=== PATIENT | female | born 2000 | race Caucasian/White ===

== ENCOUNTER 2020-11-17 21:05 | Emergency (ER) | payer OTHER ==
[~2020-11-17] VITALS: Ht 160 cm; Wt 72.0 kg
[2020-11-17 21:05] VITALS: BP 118/59
[2020-11-17 21:40] LABS: BASO # 0.2 x10^3/uL (0.0-0.2); BASO % 1 % (0-3); EOS # 0.2 x10^3/uL (0.0-0.7); EOS % 1 % (0-3); HEMATOCRIT 31.4 % (36.0-47.0); LYMPH # 2.9 x10^3/uL (1.0-4.8); LYMPH % 22 % (24-48); MEAN CORPUSCULAR HEMOGLOBIN 27 pg (25-35); MEAN CORPUSCULAR HGB CONC 32 g/dL (31-37); MEAN CORPUSCULAR VOLUME 85 fL (79-100); MONO # 0.7 x10^3/uL (0.0-1.1); MONO % 6 % (0-9); NEUT # 9.1 x10^3uL (1.8-7.7); NEUT % 70 % (31-73); PLATELET COUNT 403 x10^3/uL (140-400); RED BLOOD COUNT 3.71 x10^6/uL (3.50-5.40); RED CELL DISTRIBUTION WIDTH 15.2 % (11.5-14.5); WHITE BLOOD COUNT 13.2 x10^3/uL (4.0-11.0)
[2020-11-17 21:47] LABS: CALCIUM 9.3 mg/dL (8.5-10.1); CREATININE 0.7 mg/dL (0.6-1.0); GFR 105.6; POTASSIUM 3.8 mmol/L (3.5-5.1)
[2020-11-17 22:00] LABS: BILIRUBIN,URINE NEG (NEG); CLARITY,URINE HAZY; COLOR,URINE AMBER; GLUCOSE,URINE NEG (NEG)
[2020-11-17] MEDS ORDERED: ONDANSETRON ODT 4 MG TAB.RAPDIS PO ONE (22:00)
[2020-11-17] MEDS ORDERED: ACETAMINOPHEN 500 MG TABLET PO ONE (22:00)
[2020-11-17] MEDS ORDERED: IV RINGERS SOLUTION,LACTATED 1,000 ML IV ONE (22:00)
[2020-11-17 22:01] LABS: BACTERIA,URINE 0 /HPF (0-FEW); NITRITE,URINE NEG (NEG); RBC,URINE TNTC /HPF (0-2); SQUAMOUS EPITHELIAL CELL,UR MOD /LPF; UROBILINOGEN,URINE 0.2 mg/dL (0.2 mg/dL)
--- NOTE | 2020-11-17 22:45 | PHYS DOC ---
Adult General Chief Complaint Chief Complaint: ABDOMINAL PAIN IN HPI HPI Patient is a 20-year-old female, G2, P1 at 32 weeks who presents with a chief complaint of right-sided flank pain. States she had a stent placed recently in the right urethra for some issues she was having with flank pain and reflux. States she was supposed to have it removed 3 days ago but was not able to. States she has right-sided flank pain, 8 out of 10 despite taking multiple Percocets at home today and nausea but no vomiting. States she also has blood in her urine. Denies any vaginal bleeding, discharge, gushes of fluid or blood, contractions or abdominal pain. States that she is still feeling the baby move. Denies any recent traumas, illnesses, fevers, chest pain, shortness of breath, dysuria or blood in the stool. Review of Systems Review of Systems Review of systems otherwise unremarkable except noted in HPI Current Medications Current Medications Current Medications Medications (Trade) Dose Ordered Sig/Sonam Start Time Stop Time Status Last Admin Dose Admin Acetaminophen (Tylenol) 1,000 mg 1X ONCE 11/17/20 22:00 11/17/20 22:01 DC 11/17/20 22:26 1,000 MG Fentanyl Citrate (Fentanyl 2ml Vial) 50 mcg 1X ONCE 11/17/20 22:00 11/17/20 22:09 DC 11/17/20 22:23 50 MCG Lactated Ringer's 1,000 ml @ 1,000 mls/hr 1X ONCE 11/17/20 22:00 11/17/20 22:59 11/17/20 22:27 1,000 MLS/HR Ondansetron HCl (Zofran Odt) 4 mg 1X ONCE 11/17/20 22:00 11/17/20 22:01 DC 11/17/20 22:24 4 MG Allergies Allergies Allergies Coded Allergies Type Severity Reaction Last Updated Verified No Known Drug Allergies 11/17/20 No Physical Exam Physical Exam Constitutional: Well developed, well nourished, no acute distress, non-toxic appearance. [] Neck: Normal range of motion, no tenderness, supple, no stridor. [] Cardiovascular:Heart rate regular rhythm, no murmur [] Lungs & Thorax: Bilateral breath sounds clear to auscultation [] Abdomen: Bowel sounds normal, soft, no tenderness, no masses, no pulsatile masses. Gravid with uterus fundus well above the umbilicus. Baby movement detected by palpation. heart rate 166. [] Skin: Warm, dry, no erythema, no rash. [] Back: No tenderness, right-sided CVA tenderness. [] Extremities: No tenderness, no cyanosis, no clubbing, ROM intact, no edema. [] Neurologic: Alert and oriented X 3, normal motor function, normal sensory function, no focal deficits noted. [] Psychologic: Affect normal, judgement normal, mood normal. [] Current Patient Data Lab Results Laboratory Tests Test 11/17/20 21:05 11/17/20 21:16 White Blood Count 13.2 x10^3/uL (4.0-11.0) H Red Blood Count 3.71 x10^6/uL (3.50-5.40) Hemoglobin 10.0 g/dL (12.0-15.5) L Hematocrit 31.4 % (36.0-47.0) L Mean Corpuscular Volume 85 fL (79-100) Mean Corpuscular Hemoglobin 27 pg (25-35) Mean Corpuscular Hemoglobin Concent 32 g/dL (31-37) Red Cell Distribution Width 15.2 % (11.5-14.5) H Platelet Count 403 x10^3/uL (140-400) H Neutrophils (%) (Auto) 70 % (31-73) Lymphocytes (%) (Auto) 22 % (24-48) L Monocytes (%) (Auto) 6 % (0-9) Eosinophils (%) (Auto) 1 % (0-3) Basophils (%) (Auto) 1 % (0-3) Neutrophils # (Auto) 9.1 x10^3uL (1.8-7.7) H Lymphocytes # (Auto) 2.9 x10^3/uL (1.0-4.8) Monocytes # (Auto) 0.7 x10^3/uL (0.0-1.1) Eosinophils # (Auto) 0.2 x10^3/uL (0.0-0.7) Basophils # (Auto) 0.2 x10^3/uL (0.0-0.2) Sodium Level 137 mmol/L (136-145) Potassium Level 3.8 mmol/L (3.5-5.1) Chloride Level 102 mmol/L (98-107) Carbon Dioxide Level 23 mmol/L (21-32) Anion Gap 12 (6-14) Blood Urea Nitrogen 12 mg/dL (7-20) Creatinine 0.7 mg/dL (0.6-1.0) Estimated GFR (Cockcroft-Gault) 105.6 Glucose Level 109 mg/dL (70-99) H Calcium Level 9.3 mg/dL (8.5-10.1) Urine Collection Type Unknown Urine Color Addis Urine Clarity Hazy Urine pH 7.0 Urine Specific [place] 1.025 Urine Protein 100 mg/dl (NEG-TRACE) Urine Glucose (UA) Neg mg/dL (NEG) Urine Ketones (Stick) Neg mg/dL (NEG) Urine Blood Large (NEG) Urine Nitrite Neg (NEG) Urine Bilirubin Neg (NEG) Urine Urobilinogen Dipstick 0.2 mg/dL (0.2 mg/dL) Urine Leukocyte Esterase Trace (NEG) Urine RBC Tntc /HPF (0-2) Urine WBC 1-4 /HPF (0-4) Urine Squamous Epithelial Cells Mod /LPF Urine Bacteria 0 /HPF (0-FEW) EKG EKG [] Radiology/Procedures Radiology/Procedures [] Heart Score Risk Factors: Risk Factors: DM, Current or recent (<one month) smoker, HTN, HLP, family history of CAD, obesity. Risk Scores: Risk Factors: DM, Current or recent (<one month) smoker, HTN, HLP, family history of CAD, obesity. Course & Med Decision Making Course & Med Decision Making Patient is a 20-year-old female, G2, P1 at 32 weeks status post right renal stent who presents for flank pain. Patient states that when she called the ambulance [facility] because [facility] where [facility] surgeon was and they have OB capability. States she was told by EMS that they could not take her there because of the weather. Vital signs notable for mild tachycardia. Physical exam noted above. Patient placed on the monitor with IV access established and IV fluid resuscitation begun. Given Zofran for nausea and fentanyl for pain. Patient states that she had already taken 3 Percocet today for the pain with only minimal relief. Laboratory analysis notable for hematuria and leukocytosis. Discussed findings with patient and recommended transfer and admission for continued evaluation and treatment by [employer] and her urologist. Discussed patient with [facility] transfer team, OB/ticket chopper assembler and her urology team who felt patient was appropriate for admission and accepted to their service. [] Dragon Disclaimer Dragon Disclaimer This electronic medical record was generated, in whole or in part, using a voice recognition dictation system. Departure Departure: Impression: Primary Impression: Flank pain Additional Impressions: Hematuria Leukocytosis 32 weeks gestation of Disposition: 02 DC/TRF OTHER SHORT TERM HOS Condition: IMPROVED Referrals: MERLYN VIVEROS MD (PCP) Problem Qualifiers ROSMERY WEINBERG MD Nov 17, 2020 22:45
== END 2020-11-17 23:59 | disposition short-term general hospital (02) ==
LOC: ER 21:05
DX: O99.113 Other diseases of the blood and blood-forming organs and certain disorders involving the immune mechanism complicating pregnancy, third trimester (principal); D72.829 Elevated white blood cell count, unspecified; R10.9 Unspecified abdominal pain; R31.9 Hematuria, unspecified; Z3A.32 32 weeks gestation of pregnancy
CPT/HCPCS: 36415; 80048; 81001; 85025; 87086; 96361; 96374; 99285; J3010; J7120; Q0162

== ENCOUNTER 2021-05-14 22:14 | Emergency (ER) | payer OTHER ==
[~2021-05-14] VITALS: Ht 160 cm; Wt 59.0 kg
--- NOTE | 2021-05-14 22:17 | PHYS DOC ---
Past History Past Medical History: Other Additional Past Medical Histor: kidney reflux Past Surgical History: Other Additional Past Surgical Histo: ureteral stent Alcohol Use: None General Adult HPI: HPI: ". I have grade II ueter reflux. .. I ve had multiple episodes of pyelonephritis... And urinary tract infections I usually follow at [facility] but now I am going to start going to [facility]... I normally see Dr. Ackerman here..." In [place]" Patient is a 20 year old female who presents with above hx and complaints right flank pain, fever, malaise, nausea,. Patient normally follows at [facility]. Now is planning to follow-up at [facility]. Because of insurance issues. Patient states pain is similar to prior episodes of pyelonephritis. Patient has had pregnancies 2 term 2. Patient is unsure with her status currently. No history of bad food intake. No recent travel. No specific ill contacts. No history of trauma. No history immunosuppression. Review of Systems: Review of Systems: Constitutional: Denies fever or chills Eyes: Denies change in visual acuity HENT: Denies nasal congestion or sore throat Respiratory: Denies cough or shortness of breath Cardiovascular: Denies chest pain or edema GI: Denies abdominal pain, nausea, vomiting, bloody stools or diarrhea. Right flank discomfort : Denies dysuria Musculoskeletal: Right flank back pain . Integument: Denies rash Neurologic: Denies headache, focal weakness or sensory changes Endocrine: Denies polyuria or polydipsia Lymphatic: Denies swollen glands Psychiatric: Denies depression or anxiety Family History: Family History: See nursing for home meds. Current Medications: Current Meds: See nursing for home meds Allergies: Allergies: Allergies Coded Allergies Type Severity Reaction Last Updated Verified No Known Drug Allergies 11/17/20 No Physical Exam: PE: Constitutional: Well developed, well nourished, moderate acute distress, non- toxic appearance. [] HENT: Normocephalic, atraumatic, bilateral external ears normal, oropharynx moist, no oral exudates, nose normal. [] Eyes: PERRLA, EOMI, conjunctiva normal, no discharge. [] Neck: Normal range of motion, no tenderness, supple, no stridor. [] Cardiovascular:Heart rate regular rhythm, no murmur [] Lungs & Thorax: Bilateral breath sounds apex on auscultation [] Abdomen: Bowel sounds decreased,, soft, no tenderness, no masses, no pulsatile masses. Right flank discomfort Skin: Warm, dry, no erythema, no rash. [] Back: No tenderness, right CVA tenderness. [] Extremities: No tenderness, no cyanosis, no clubbing, ROM intact, no edema. [] Neurologic: Alert and oriented X 3, normal motor function, normal sensory function, no focal deficits noted. [] Psychologic: Affect normal, judgement normal, mood normal. [] EKG: EKG: [] Radiology/Procedures: Radiology/Procedures: [address] [address] IMAGING REPORT Signed PATIENT: FABIO WANG ACCOUNT: [id number] : 2000 LOCATION: ER AGE: 20 SEX: F EXAM STATUS: REG ER ORD. PHYSICIAN: JOCELYN BARROS MD REASON: RIGHT KIDNEY PAIN. HX KIDNEY DISORDER PROCEDURE: ACUTE ABDOMEN SERIES Study: XR ABDOMEN COMP ACUTE Indication: Right flank pain. Comparison: None. Findings: Cholecystectomy clips. Belly button ring. Nonobstructive bowel gas pattern. Small amount of well-formed stool within the colon. No radiographic evidence for a kidney stone. A few pelvic phleboliths. Impression: No acute radiographic abnormality seen throughout the abdomen or pelvis. Electronically signed by: HENRY PITTS MD (05/15/2021 12:31 AM) [facility] DICTATED AND SIGNED BY: HENRY PITTS MD DATE: 05/15/2128 CC: JOCELYN BARROS MD; CHIVOKAYA ~MTH0 0 [][address] [address] IMAGING REPORT Signed PATIENT: FABIO WANG ACCOUNT: [id number] : 2000 LOCATION: ER AGE: 20 SEX: F EXAM STATUS: REG ER ORD. PHYSICIAN: JOCELYN BARROS MD REASON: RT FLANK PAIN.HX KIDNEY DISORDER PROCEDURE: CT ABDOMEN PELVIS WO CONTRAST Study: CT abdomen/pelvis without intravenous contrast Indication: Right flank pain. Comparison: None. Technique: Helical CT imaging performed of the abdomen and pelvis without the use of intravenous contrast. Sagittal and coronal reformats were obtained. One or more of the following individualized dose reduction techniques were utilized for this examination: 1. Automated exposure control 2. Adjustment of the mA and/or kV according to patient size 3. Use of iterative reconstruction technique. Findings: Inherently limited evaluation without intravenous contrast. Unremarkable visualized chest. No focal hepatic parenchymal abnormality. Surgically absent gallbladder. Unremarkable biliary tree, pancreas and adrenal glands. The spleen is within the broad range of normal for size measuring under 13 cm in maximum dimension. The right kidney exhibits lobulated margins and less well delineated renal sinus fat compared to the left. No intrarenal stone on either side or hydronephrosis. Minimal thickening of the urinary bladder wall. Normal morphology of the uterus. Small right ovarian cyst or dominant follicle measuring up to approximately 1.3 cm. Mild volume colonic stool burden. Normal appendix, image 102 series 2. Nonobstructed small bowel. Unremarkable stomach. Normal aortic caliber. No lymphadenopathy. No free fluid. No acute or aggressive osseous process. Impression: 1. No nephrolithiasis is identified or hydronephrosis. Nonspecific increased lobulated margins of the right kidney and less well delineated renal sinus fat relative to the left. This could be developmental or potentially acquired from recurrent infection. No overt perinephric edema to suggest pyelonephritis. Minimal prominence of the urinary bladder wall. Consider correlation with urinalysis to exclude cystitis. 2. No acute abnormality of the rest of the abdominal or pelvic contents. Surgically absent gallbladder. Electronically signed by: HENRY PITTS MD (05/15/2021 12:44 AM) [facility] DICTATED AND SIGNED BY: HENRY PITTS MD DATE: 05/15/21 0038 CC: JOCELYN BARROS MD; KAYA ACKERMAN ~MTH0 0 Heart Score: C/O Chest Pain: N/A Risk Factors: Risk Factors: DM, Current or recent (<one month) smoker, HTN, HLP, family history of CAD, obesity. Risk Scores: Score 0 - 3: 2.5% MACE over next 6 weeks - Discharge Home Score 4 - 6: 20.3% MACE over next 6 weeks - Admit for Clinical Observation Score 7 - 10: 72.7% MACE over next 6 weeks - Early Invasive Strategies Course & Med Decision Making: Course & Med Decision Making Pertinent Labs and Imaging studies reviewed. (See chart for details) Patient stay on clear fluid diet. Push fluids. Follow-up primary care. Take Keflex 500 mg 3 times a day. Follow-up urine cultures. Follow-up with urology. Return if any concerns. Follow-up primary. Tylenol and ibuprofen for pain. Impression: 1. Renal Colic 2. History of ureter- reflux [] Dragon Disclaimer: Dragon Disclaimer: This electronic medical record was generated, in whole or in part, using a voice recognition dictation system. Departure Departure: Referrals: KAYA ACKERMAN (PCP) Scripts Cephalexin (KEFLEX) 750 Mg Capsule 500 MG PO TID for hx pyleo for 10 Days, #30 CAP Prov: JOCELYN BARROS MD 05/15/21 Dragon Disclaimer This chart was dictated in whole or in part using Voice Recognition software in a busy, high-work load, and often noisy Emergency Department environment. It may contain unintended and wholly unrecognized errors or omissions. JOCELYN BARROS MD May 14, 2021 22:17
[2021-05-14] MEDS ORDERED: IV RINGERS SOLUTION,LACTATED 1,000 ML IV SCH (22:45)
[2021-05-14] MEDS ORDERED: ONDANSETRON PF 4 MG/2 ML VIAL. IVP ONE (22:45)
[2021-05-14] MEDS ORDERED: FAMOTIDINE 20 MG/2 ML VIAL IVP ONE (22:45)
[2021-05-14] MEDS ORDERED: IV NORMAL SALINE 50ML 50 ML ONE (23:11)
[2021-05-14] MEDS ORDERED: cefTRIAXone SODIUM 1 GM VIAL ONE (23:12)
[2021-05-14 23:19] LABS: BASO # 0.1 x10^3/uL (0.0-0.2); BASO % 1 % (0-3); EOS # 0.2 x10^3/uL (0.0-0.7); EOS % 2 % (0-3); HEMATOCRIT 37.9 % (36.0-47.0); HEMOGLOBIN 12.6 g/dL (12.0-15.5); LYMPH # 3.6 x10^3/uL (1.0-4.8); LYMPH % 38 % (24-48); MEAN CORPUSCULAR HEMOGLOBIN 28 pg (25-35); MEAN CORPUSCULAR HGB CONC 33 g/dL (31-37); MEAN CORPUSCULAR VOLUME 83 fL (79-100); MONO # 0.5 x10^3/uL (0.0-1.1); MONO % 5 % (0-9); NEUT # 5.1 x10^3uL (1.8-7.7); NEUT % 54 % (31-73); PLATELET COUNT 275 x10^3/uL (140-400); RED BLOOD COUNT 4.57 x10^6/uL (3.50-5.40); RED CELL DISTRIBUTION WIDTH 15.9 % (11.5-14.5); WHITE BLOOD COUNT 9.5 x10^3/uL (4.0-11.0)
[2021-05-14 23:21] LABS: BARBITURATES NEG (NEG); BENZODIAZEPINES NEG (NEG); CANNABINOIDS NEG (NEG); COCAINE NEG (NEG); METHADONE NEG (NEG); OPIATES NEG (NEG); PHENCYCLIDINE NEG (NEG)
[2021-05-14 23:24] LABS: CALCIUM 9.1 mg/dL (8.5-10.1); POTASSIUM 3.9 mmol/L (3.5-5.1)
[2021-05-14 23:26] LABS: AMPHETAMINE/METHAMPHETAMINE NEG (NEG)
[2021-05-14 23:29] LABS: BILIRUBIN,URINE NEG (NEG); CLARITY,URINE HAZY; COLOR,URINE YELLOW; GLUCOSE,URINE NEG (NEG); NITRITE,URINE NEG (NEG); UROBILINOGEN,URINE 0.2 mg/dL (0.2 mg/dL)
[2021-05-14 23:30] LABS: ALBUMIN 4.1 g/dL (3.4-5.0); DIRECT BILIRUBIN 0.1 mg/dL (0.0-0.2); TOTAL BILIRUBIN 0.4 mg/dL (0.2-1.0); TOTAL PROTEIN 7.6 g/dL (6.4-8.2)
[2021-05-14 23:30] LABS: BACTERIA,URINE 0 /HPF (0-FEW); RBC,URINE 0 /HPF (0-2)
[2021-05-14] MEDS ORDERED: KETOROLAC 30 MG/ML VIAL. IVP ONE (23:30)
[2021-05-15] MEDS ORDERED: MORPHINE SULFATE 10 MG/ML SYRINGE. SQ ONE (00:30)
--- NOTE | 2021-05-15 00:33 | RAD ---
Study: XR ABDOMEN COMP ACUTE Indication: Right flank pain. Comparison: None. Findings: Cholecystectomy clips. Belly button ring. Nonobstructive bowel gas pattern. Small amount of well-formed stool within the colon. No radiographic evidence for a kidney stone. A few pelvic phleboliths. Impression: No acute radiographic abnormality seen throughout the abdomen or pelvis. Electronically signed by: HENRY PITTS MD (05/15/2021 12:31 AM) [facility]
--- NOTE | 2021-05-15 00:47 | RAD ---
Study: CT abdomen/pelvis without intravenous contrast Indication: Right flank pain. Comparison: None. Technique: Helical CT imaging performed of the abdomen and pelvis without the use of intravenous cont rast. Sagittal and coronal reformats were obtained. One or more of the following individualized dose reduction techniques were utilized for this examinat ion: 1. Automated exposure control 2. Adjustment of the mA and/or kV according to patient size 3. Use of iterative reconstruction technique. Findings: Inherently limited evaluation without intravenous contrast. Unremarkable visualized chest. No focal hepatic parenchymal abnormality. Surgically absent gallbladder. Unremarkable biliary tree, p ancreas and adrenal glands. The spleen is within the broad range of normal for size measuring under 1 3 cm in maximum dimension. The right kidney exhibits lobulated margins and less well delineated renal sinus fat compared to the left. No intrarenal stone on either side or hydronephrosis. Minimal thickening of the urinary bladder wall. Normal morphology of the uterus. Small right ovarian cyst or dominant follicle measuring up to approximately 1.3 cm. Mild volume colonic stool burden. Normal appendix, image 102 series 2. Nonobstructed small bowel. Unr emarkable stomach. Normal aortic caliber. No lymphadenopathy. No free fluid. No acute or aggressive osseous process. Impression: 1. No nephrolithiasis is identified or hydronephrosis. Nonspecific increased lobulated margins of th e right kidney and less well delineated renal sinus fat relative to the left. This could be developm ental or potentially acquired from recurrent infection. No overt perinephric edema to suggest pyelone phritis. Minimal prominence of the urinary bladder wall. Consider correlation with urinalysis to excl ude cystitis. 2. No acute abnormality of the rest of the abdominal or pelvic contents. Surgically absent gallbladd er. Electronically signed by: HENRY PITTS MD (05/15/2021 12:44 AM) [facility]
[2021-05-15] MEDS ORDERED: CEPH750C9 PO (01:09)
[2021-05-15 01:15] VITALS: BP 125/79
== END 2021-05-15 01:15 | disposition home or self-care (01) ==
LOC: ER 22:14
DX: N23 Unspecified renal colic (principal)
CPT/HCPCS: 36415; 74022; 74176; 80048; 80076; 80307; 81001; 81025; 82150; 83690; 85025; 96365; 96372; 96375; 99284; J0696; J1885; J2270; J2405; J3490; J7120

== ENCOUNTER 2021-11-12 19:29 | Emergency (ER) | payer OTHER ==
[~2021-11-12] VITALS: Ht 160 cm; Wt 59.0 kg
[~2021-11-12 19:29] MED LIST: CEPH750C9 PO
[2021-11-12 19:30] VITALS: BP 113/75
--- NOTE | 2021-11-12 20:42 | PHYS DOC ---
Past History Past Medical History: Other Additional Past Medical Histor: kidney reflux Past Surgical History: Cholecystectomy (2019), Other Additional Past Surgical Histo: ureteral stent Alcohol Use: None Drug Use: None General Adult EDM: Chief Complaint: MULTIPLE COMPLAINTS HPI: HPI: Patient is a 21 year old female who presents with chief complaint of right flank pain and left shoulder pain. Patient reports right flank pain beginning 1 week ago getting progressively worse. She has a history of vesicoureteral reflux and 2 previous right-sided stents, the last stent was removed 1 year ago. Patient reports history of pyelonephritis and states this feels like previous infections. Reports pain with urination; denies hematuria and [facility] CENTER ASSISTANT complaints. Pain is currently 9 out of 10. patient reports last menstrual. Was in October but she is not currently sexually active. Patient was diagnosed with Covid several weeks ago but tested negative as of yesterday. Review of Systems: Review of Systems: Constitutional: Denies fever or chills HENT: Denies nasal congestion or sore throat Respiratory: Denies cough or shortness of breath Cardiovascular: Denies chest pain or palpitations GI: Reports flank pain; denies other abdominal pain : Denies hematuria; reports dysuria Musculoskeletal: Generalized left shoulder neck and upper extremity pain. Neurologic: Reports headache; denies sensory changes Complete systems were reviewed and found to be within normal limits, except as documented in this note. Allergies: Allergies: Allergies Coded Allergies Type Severity Reaction Last Updated Verified No Known Drug Allergies 11/17/20 No Physical Exam: PE: Constitutional: Well developed, well nourished, no acute distress, non-toxic appearance HENT: Normocephalic, atraumatic Eyes: Conjunctiva normal, no discharge Neck: Normal range of motion, supple Lungs & Thorax: No respiratory distress, equal chest rise and fall Abdomen: Bilateral CVA tenderness right greater than left, voluntary guarding Skin: Warm, dry, no erythema, no rash Back: Generalized upper thoracic tenderness, generalized lower cervical tenderness Extremities: Tenderness to palpation left upper extremity, ROM intact, no edema Neurologic: Alert and oriented X 3, normal motor function, normal sensory function, no focal deficits noted Psychologic: Affect anxious, judgment normal EKG: EKG: [] Radiology/Procedures: Radiology/Procedures: PROCEDURE: CT ABDOMEN PELVIS WO CONTRAST CT scan of the abdomen and pelvis without contrast 11/12/2021 CLINICAL HISTORY: Right flank pain. TECHNIQUE: Unenhanced, contiguous, 3 mm axial sections were obtained through the abdomen and pelvis. One or more of the following individualized dose reduction techniques were utilized for this study: 1. Automated exposure control. 2. Adjustment of the mA and/or kV according to patient size. 3. Use of iterative reconstruction technique. FINDINGS: Comparison study is dated 05/14/2021. Images through the lung bases are within normal limits. The liver, spleen, pancreas, and adrenal glands are within normal limits. Patchy increased attenuation is seen within the medullary portions of both kidneys con sistent with medullary nephrocalcinosis. No ureteral calculus is seen. There is no evidence of obstruction of either collecting system. The abdominal aorta tapers normally. Surgical clips are seen within the gallbladder fossa consistent with cholecystectomy. No free fluid or free air is seen within the abdomen. There is no evidence of bowel obstruction. The appendix is well-visualized and is within normal limits. Images through the pelvis demonstrate the urinary bladder distended with urine. Calcifications are seen within the pelvis consistent with phleboliths. No distal ureteral calculus is seen. A 4.6 cm oval-shaped low-attenuation structure seen in the right adnexa. This likely represents a right ovarian cyst. No free fluid is seen. Minimal S-shaped curvature of the thoracolumbar spine is seen. IMPRESSION: 4.6 cm probable right ovarian cyst. Electronically signed by: Javy Sheppard MD (11/12/2021 9:13 PM) [id number] Heart Score: C/O Chest Pain: N/A Course & Med Decision Making: Course & Med Decision Making Pertinent Labs and Imaging studies reviewed. (See chart for details) Patient presents with report of right flank pain and left shoulder pain. Patient with history of vesicoureteral reflux with frequent episodes of pyelonephritis. Patient concerned she may have active infection. Patient seen and evaluated. Labs ordered. CT abdomen/pelvis obtained. Prior to labs and imaging results patient elected to leave AGAINST MEDICAL ADVICE. Patient was unhappy being in a hallway bed and upset she had not been checked on for a short time. Patient signed AMA paperwork acknowledged risk of leaving AMA including risk of permanent disability or . Of notes labs reviewed without active signs of infection. Renal function intact. CT abdomen/pelvis without significant kidney finding. Incidental right-sided ovarian cyst appreciated. Dragon Disclaimer: Nani Disclaimer: This electronic medical record was generated, in whole or in part, using a voice recognition dictation system. Departure Departure: Impression: Primary Impression: Flank pain Additional Impressions: Ovarian cyst Qualified Codes: N83.201 - Unspecified ovarian cyst, right side Left against medical advice Disposition: LEFT AGAINST MEDICAL ADVICE Condition: GUARDED Referrals: KAYA WALDRON (PCP) RADHA FRIAS DO Nov 12, 2021 20:42
[2021-11-12] MEDS ORDERED: METOCLOPRAMIDE HCL 10 MG/2 ML VIAL. IVP ONE (20:45)
[2021-11-12] MEDS ORDERED: KETOROLAC 15 MG/ML VIAL. IVP ONE (20:45)
[2021-11-12] MEDS ORDERED: IV NORMAL SALINE 1,000ML 1,000 ML IV SCH (20:45)
--- NOTE | 2021-11-12 21:15 | RAD ---
CT scan of the abdomen and pelvis without contrast 11/12/2021 CLINICAL HISTORY: Right flank pain. TECHNIQUE: Unenhanced, contiguous, 3 mm axial sections were obtained through the abdomen and pelvis. One or more of the following individualized dose reduction techniques were utilized for this study: 1. Automated exposure control. 2. Adjustment of the mA and/or kV according to patient size. 3. Use of iterative reconstruction technique. FINDINGS: Comparison study is dated 05/14/2021. Images through the lung bases are within normal limits. The liver, spleen, pancreas, and adrenal glands are within normal limits. Patchy increased attenuatio n is seen within the medullary portions of both kidneys consistent with medullary nephrocalcinosis. N o ureteral calculus is seen. There is no evidence of obstruction of either collecting system. The abdominal aorta tapers normally. Surgical clips are seen within the gallbladder fossa consistent with cholecystectomy. No free fluid or free air is seen within the abdomen. There is no evidence of b owel obstruction. The appendix is well-visualized and is within normal limits. Images through the pelvis demonstrate the urinary bladder distended with urine. Calcifications are se en within the pelvis consistent with phleboliths. No distal ureteral calculus is seen. A 4.6 cm oval- shaped low-attenuation structure seen in the right adnexa. This likely represents a right ovarian cys t. No free fluid is seen. Minimal S-shaped curvature of the thoracolumbar spine is seen. IMPRESSION: 4.6 cm probable right ovarian cyst. Electronically signed by: Javy Sheppard MD (11/12/2021 9:13 PM) [id number]
[2021-11-12 21:38] LABS: BASO # 0.1 x10^3/uL (0.0-0.2); BASO % 1 % (0-3); EOS # 0.4 x10^3/uL (0.0-0.7); EOS % 4 % (0-3); HEMATOCRIT 39.4 % (36.0-47.0); HEMOGLOBIN 13.2 g/dL (12.0-15.5); LYMPH # 3.1 x10^3/uL (1.0-4.8); LYMPH % 30 % (24-48); MEAN CORPUSCULAR HEMOGLOBIN 29 pg (25-35); MEAN CORPUSCULAR HGB CONC 33 g/dL (31-37); MEAN CORPUSCULAR VOLUME 86 fL (79-100); MONO # 0.6 x10^3/uL (0.0-1.1); MONO % 5 % (0-9); NEUT # 6.3 x10^3uL (1.8-7.7); NEUT % 60 % (31-73); PLATELET COUNT 262 x10^3/uL (140-400); RED CELL DISTRIBUTION WIDTH 14.4 % (11.5-14.5); WHITE BLOOD COUNT 10.5 x10^3/uL (4.0-11.0)
[2021-11-12 21:51] LABS: CLARITY,URINE CLEAR; COLOR,URINE YELLOW
[2021-11-12 21:52] LABS: BACTERIA,URINE 0 /HPF (0-FEW); BILIRUBIN,URINE NEG (NEG); GLUCOSE,URINE NEG (NEG); NITRITE,URINE NEG (NEG); SQUAMOUS EPITHELIAL CELL,UR FEW /LPF; UROBILINOGEN,URINE 0.2 mg/dL (0.2 mg/dL); WBC,URINE 0 /HPF (0-4)
[2021-11-12 22:03] LABS: CALCIUM 9.1 mg/dL (8.5-10.1); CREATININE 0.6 mg/dL (0.6-1.0)
[2021-11-12 22:06] LABS: ALBUMIN/GLOBULIN RATIO 1.1 (1.0-1.7); TOTAL BILIRUBIN 0.2 mg/dL (0.2-1.0); TOTAL PROTEIN 7.8 g/dL (6.4-8.2)
== END 2021-11-12 21:43 | disposition left against medical advice (07) ==
LOC: ER 19:29
DX: N83.201 Unspecified ovarian cyst, right side (principal); M54.6 Pain in thoracic spine; M54.2 Cervicalgia; M25.512 Pain in left shoulder; Z90.49 Acquired absence of other specified parts of digestive tract
CPT/HCPCS: 36415; 74176; 80053; 81001; 81025; 83605; 83690; 83735; 85025; 96361; 96374; 96375; 99284; J1885; J2765; J7030